=== PATIENT | female | born 1955 ===

== ENCOUNTER 2018-02-02 07:24 | Day surgery (SDC) | payer MEDICARE ==
[2014-10-09 09:44] VITALS: BMI 23.0
[2018-02-02] MEDS ORDERED: Lidocaine PF 2% (5 ml) Inj (For Cardiac Arrhy) ONE (08:12)
[2018-02-02] MEDS ORDERED: Propofol 10 mg/ml Inj (20 ML) ONE (08:12)
[2018-02-02] MEDS ORDERED: Sodium Chloride 0.9% 1,000 ML IV SCH (09:30)
[2018-02-02 10:37] VITALS: BP 132/78; PULSE 71; RESP 16; TEMP 97.8; O2SAT 98
== END 2018-02-02 10:52 | disposition home or self-care (01) ==
LOC: ENDO 07:24
PROVIDERS: ATTEND Specialist
DX: Z12.11 Encounter for screening for malignant neoplasm of colon (principal); D12.4 Benign neoplasm of descending colon; D12.5 Benign neoplasm of sigmoid colon; K64.8 Other hemorrhoids; K59.09 Other constipation; E11.9 Type 2 diabetes mellitus without complications
CPT/HCPCS: 45380; 45385; 88305; J2704; J7030